=== PATIENT | male | born 1965 | race Caucasian/White ===

== ENCOUNTER → 2017-05-09 | Outpatient (CLI) | payer MEDICAID ==
[~2017-05-09] MED LIST: ALPRAZOLAM2 MG PO; ASPIRIN 81MG TA81 MG PO; FLOMAX 0.4MG C0.4 MG PO; HUMULIN 70100 UNITS/ SC; LANTUS INS100 UNITS/ SC; LEXAPRO 10 MG T10 MG PO; LIPITOR20 MG PO; NEURONTIN600 MG PO; NEXIUM 24HR20 M1 PO; PLAVIX 75MG TAB75 MG PO; SIMVASTATIN10 MG PO; XANAX 1MG TABLET1 MG PO; ZANTAC 150150 MG PO
[2017-05-09 18:11] LABS: HEMOGLOBIN 14.8 g/dL (14.1-18.0); LYMPH # 1.7 K/mm3 (0.7-4.5); LYMPH % 18.1 % (10-50)
[2017-05-09 18:49] LABS: BUN 11 mg/dL (7-18)
[2017-05-09 18:50] LABS: GFR (ESTIMATED) 58 ML/MIN (>60)
[2017-05-10 14:03] LABS: AMPHETAMINES/METAMPHETAMINES NEGATIVE ng/mL (<1000)
[2017-05-11 10:36] LABS: Creatinine, Urine 72.3 mg/dL (Not Estab.); Microalbumin, Urine <3.0 ug/mL (Not Estab.)
== END ==
LOC: LAB 17:29
PROVIDERS: Emergency Medicine
DX: E11.21 Type 2 diabetes mellitus with diabetic nephropathy (principal); Z79.899 Other long term (current) drug therapy